=== PATIENT | male | born 1950 | race Caucasian/White ===

== ENCOUNTER 2017-11-12 00:11 | Observation (INO) | payer OTHER, MEDICARE ==
[2017-11-12] VITALS (9 sets, daily range): BP systolic 100–126; BP diastolic 58–67; PULSE 66–92; RESP 15–16; TEMP 97.6–99; O2SAT 95–97
[~2017-11-12 00:11] MED LIST: ARIP5S PO; ASPI81 PO; FOLI1TAB PO; MIRA33502 PO; PREV30CA36 PO; QUET1TAB65 PO; SENN1TAB11 PO; TAMS0.4C67 PO; VENL25TA14 PO
--- NOTE | 2017-11-12 00:27 | PD ---
HPI Chief Complaint: Chest Pain Time Seen by Provider: 00:19 Travel History International Travel<30 days: No Contact w/Intl Traveler<30days: No Traveled to known affect area: No History of Present Illness HPI The patient is a 67 year old male who presents to the [facility] emergency department with a history of right-sided chest pain and upper back pain that he reports began 2 hours prior to arrival. The patient reports that the pain was initially an 8 out of 10 in severity and now is a 6 out of 10 in severity after taking 2 adult dose aspirin and 3 sublingual nitroglycerin. The patient reports that he has had the pain in the past been diagnosed with angina. He reports that he is followed by the [place] for his primary care. His last stress test was years ago. He cannot recall ever having a cardiac catheterization. He denies any prior history of myocardial infarction, DVT, or PE. He denies having any worsening reflux symptoms. He reports that the pain is an aching sensation. He reports that the pain is been constant since onset. He reports having associated shortness of breath, however no diaphoresis, nausea, or vomiting. He denies having any recent fevers, cough or congestion. On review of systems otherwise, he denies having any abdominal pain, diarrhea, urinary symptoms, or neurologic symptoms. FORMERLY [facility] Past Medical History Narrative Medical The patient's past medical history is significant for posttraumatic stress disorder, depression, chronic back pain, reported history of being diagnosed with angina by the [facility], history of acid reflux. Bipolar Disorder: Yes Cardiovascular Problems: Yes High Cholesterol: Yes (PT DENIES) Chest Pain: Yes Psychiatric: Yes (PTSD, SUICIDE ATTEMPTS VIA OVERDOSE IN PAST) Past Surgical History Narrative Surgical The patient's past surgical history is significant for back surgery Other Surgery: No Social History Alcohol Use: No Tobacco Use: No Substance Use: No Allergies-Medications (Allergen,Severity, Reaction): Coded Allergies: No Known Allergies (Verified Allergy, Unknown, 11/12/17) Reported Meds & Prescriptions Reported Meds & Active Scripts Active Reported Folic Acid 1 Mg Tablet Miralax Powder (Polyethylene Glycol 3350 Powder) 17 Gm Powd 17 Gm PO DAILY Mix and dissolve one measuring cap-ful (17 grams) in water or juice. Remeron (Mirtazapine) 15 Mg Tab 7.5 Mg PO HS Abilify (Aripiprazole) 2 Mg Tab 2 Mg PO DAILY Aspirin Low Dose (Aspirin) 81 Mg Chew 81 Mg CHEW DAILY Lansoprazole 30 Mg Capdr 30 Mg PO DAILY Tamsulosin (Tamsulosin HCl) 0.4 Mg Cap 0.4 Mg HS Seroquel (Quetiapine Fumarate) 200 Mg Tab 200 Mg PO HS Effexor (Venlafaxine HCl) 25 Mg Tab 25 Mg PO Q12H Review of Systems Except as stated in HPI: all other systems reviewed are Neg General / Constitutional: No: Fever Eyes: No: Visual changes HENT: No: Headaches Cardiovascular: Positive: Chest Pain or Discomfort, Dyspnea on exertion Respiratory: Positive: Shortness of Breath Gastrointestinal: No: Abdominal Pain Genitourinary: No: Dysuria Musculoskeletal: No: Pain Skin: No Rash Neurologic: No: Weakness, Focal Abnormalities, Change in Mentation, Slurred Speech, Sensory Disturbance Psychiatric: No: Depression Endocrine: No: Polydipsia Hematologic/Lymphatic: No: Easy Bruising Physical Exam Narrative General: The patient is a well-developed well-nourished male in no acute distress. Head and Neck exam: Head is normocephalic atraumatic. Eyes: EOMI, pupils are equal round and reactive to light. Nose: Midline septum with pink mucous membranes Mouth: Dentition unremarkable. Moist mucus membranes. Posterior oropharynx is not erythematous. No tonsillar hypertrophy. Uvula midline. Airway patent. Neck: No palpable lymphadenopathy. No nuchal rigidity. No thyromegaly. Cardiovascular: Regular rate and rhythm without murmurs, gallops, or rubs. No pulse deficit to the extremities on simultaneous auscultation and palpation of his radial artery. Lungs: Clear to auscultation bilaterally. No wheezes, rhonchi, or rales. Abdomen: Soft, without tenderness to palpation in all 4 quadrants of the abdomen. No guarding, rebound, or rigidity. Normal bowel sounds are audible. No tenderness on palpation of McBurney's point. Negative Roman sign. Extremities: No clubbing, cyanosis, or edema. 2+ pulses in all 4 extremities. No calf tenderness on palpation. Back: No spinous process tenderness to palpation. No costovertebral angle tenderness to palpation. Neurologic Exam: Grossly nonfocal. Skin Exam: No rash noted. Intact skin that is warm and dry. Data Data Last Documented VS Vital Signs Date Time Temp Pulse Resp B/P (MAP) Pulse Ox O2 Delivery O2 Flow Rate FiO2 11/12/17 00:47 92 16 112/67 (82) 96 Room Air 11/12/17 00:13 99.0 Orders Orders Electrocardiogram (11/12/17:21) Complete Blood Count With Diff (11/12/17:21) Comprehensive Metabolic Panel (11/12/17:21) Creatine Kinase (Cpk) (11/12/17:21) Ckmb (Isoenzyme) Profile (11/12/17:21) Troponin I (11/12/17:) B-Type Natriuretic Peptide (11/12/17:21) Prothrombin Time / Inr (Pt) (11/12/17:) Act Partial Throm Time (Ptt) (11/12/17:) Lipase (11/12/17:21) Magnesium (Mg) (11/12/17:21) Chest, Single Ap (11/12/17:21) Iv Access Insert/Monitor (11/12/17:21) Ecg Monitoring (11/12/17 00:21) Oximetry (11/12/17:21) Bilateral Bp Monitoring (11/12/17 00:39) Morphine Inj (Morphine Inj) (11/12/17 00:45) Nitroglycerin 2% Oint (Nitroglycerin 2% (11/12/17 00:45) Sodium Chlorid 0.9% 500 Ml Inj (Ns 500 M (11/12/17 00:45) Ondansetron Inj (Zofran Inj) (11/12/17 00:45) CKMB (11/12/17 00:45) CKMB% (11/12/17 00:45) Admit Order (Ed Use Only) (11/12/17 01:33) Labs Laboratory Tests Test 11/12/17 00:45 White Blood Count 10.4 TH/MM3 Red Blood Count 4.27 MIL/MM3 Hemoglobin 13.5 GM/DL Hematocrit 38.9 % Mean Corpuscular Volume 91.2 FL Mean Corpuscular Hemoglobin 31.6 PG Mean Corpuscular Hemoglobin Concent 34.6 % Red Cell Distribution Width 13.2 % Platelet Count 217 TH/MM3 Mean Platelet Volume 7.5 FL Neutrophils (%) (Auto) 86.2 % Lymphocytes (%) (Auto) 5.5 % Monocytes (%) (Auto) 7.6 % Eosinophils (%) (Auto) 0.4 % Basophils (%) (Auto) 0.3 % Neutrophils # (Auto) 9.0 TH/MM3 Lymphocytes # (Auto) 0.6 TH/MM3 Monocytes # (Auto) 0.8 TH/MM3 Eosinophils # (Auto) 0.0 TH/MM3 Basophils # (Auto) 0.0 TH/MM3 CBC Comment DIFF FINAL Differential Comment Prothrombin Time 9.9 SEC Prothromb Time International Ratio 1.0 RATIO Activated Partial Thromboplast Time 24.7 SEC Blood Urea Nitrogen 16 MG/DL Creatinine 1.50 MG/DL Random Glucose 85 MG/DL Total Protein 6.9 GM/DL Albumin 3.7 GM/DL Calcium Level 8.4 MG/DL Magnesium Level 2.2 MG/DL Alkaline Phosphatase 81 U/L Aspartate Amino Transf (AST/SGOT) 20 U/L Alanine Aminotransferase (ALT/SGPT) 28 U/L Total Bilirubin 0.2 MG/DL Sodium Level 144 MEQ/L Potassium Level 4.1 MEQ/L Chloride Level 109 MEQ/L Carbon Dioxide Level 28.9 MEQ/L Anion Gap 6 MEQ/L Estimat Glomerular Filtration Rate 46 ML/MIN Total Creatine Kinase 143 U/L Creatine Kinase MB 0.9 NG/ML Troponin I LESS THAN 0.02 NG/ML B-Type Natriuretic Peptide 9 PG/ML Lipase 101 U/L MDM Medical Decision Making Medical Screen Exam Complete: Yes Emergency Medical Condition: Yes Medical Record Reviewed: Yes Interpretation(s) Last Impressions Chest X-Ray 11/12/17 0021 Signed Impressions: Service Date/Time: Sunday, November 12, 2017 00:47 - CONCLUSION: No acute disease. Bob Escobar MD Myocardial Perfusion Scan Nuc Med 11/12/17 0000 Signed Impressions: Service Date/Time: Sunday, November 12, 2017 08:30 - CONCLUSION: No reversible perfusion defects focal wall motion abnormalities. RISK CATEGORY: 1-Low Risk. Barney Mathews MD Differential Diagnosis Acute coronary syndrome, versus aortic dissection, versus pneumonia, versus pneumothorax, versus pulmonary embolism Narrative Course During the course of the patient's emergency department visit, the patient's history, examination, and differential diagnosis were reviewed with the patient. The patient was placed on a media monitor with oximetry and frequent blood pressure monitoring. The patient had IV access obtained and blood work sent for analysis. The patient had an EKG done on arrival. The patient's EKG shows a sinus rhythm heart rate of 70, QRS duration is 78 ms, QTC 393 ms. The patient has no acute ST segment elevation noted. The patient has T waves inverted in V1, V2, aVL. Regarding the patient's differential diagnosis, pneumonia seems less likely as the patient denies having any cough, congestion, fever, or chills. The patient' s pulmonary embolism Wells score is 0, therefore low probability for pulmonary embolism. Regarding the diagnosis of aortic dissection, chest x-ray will be done to evaluate for any widening of the mediastinum or evidence of pneumothorax. Blood pressures on bilateral upper extremities have been ordered. The patient was initially provided nitroglycerin 1 inch to the chest wall, morphine 2 mg IV, Zofran 4 mg IV, normal saline 500 mL bolus 1. The patient's studies were reviewed and remarkable for A white count of 10.4, hemoglobin 13.5, platelets 217 with 86.2 neutrophils, lymphocytes 5.5. CMP is remarkable for chloride of 109, creatinine 1.50, GFR 46, calcium 8.4, lipase within normal limits, initial set of cardiac enzymes within normal limits, BNP is 9 ruling out congestive heart failure. PT PTT within normal limits. A chest x-ray shows no acute cardiopulmonary disease. The patient's results were discussed with the patient, including the plan of care. I explained that further testing and/ or monitoring is indicated based on the patient's history, examination, and/ or laboratory findings. Therefore, I recommended admission for additional evaluation. The patient expressed understanding and was agreeable with this plan. The patient was admitted to the hospital in stable condition and sent to a bed under the care of the chest pain center. Diagnosis Primary Impression: Chest pain, rule out acute myocardial infarction Admitting Information Admitting Physician Requests: Yoli Finn MD Nov 12, 2017 00:27
[2017-11-12] MEDS ORDERED: VENL25TA PO (00:35)
[2017-11-12] MEDS ORDERED: SERO200T PO (00:40)
[2017-11-12] MEDS ORDERED: ARIP2 PO (00:40)
[2017-11-12] MEDS ORDERED: FOLI1TAB6 (00:40)
[2017-11-12] MEDS ORDERED: TAMS0.4C4 (00:40)
[2017-11-12] MEDS ORDERED: MIRA3350 PO (00:40)
[2017-11-12] MEDS ORDERED: ASPI81CH6 CHEW (00:40)
[2017-11-12] MEDS ORDERED: LANS30CA PO (00:40)
[2017-11-12] MEDS ORDERED: REME15TA PO (00:40)
[2017-11-12] MEDS ORDERED: ONDANSETRON HCL 4 MG/2 ML VIAL IV ONE (00:45)
[2017-11-12] MEDS ORDERED: NITROGLYCERIN 2% OINT 1 GM PACKET TOP ONE (00:45)
[2017-11-12] MEDS ORDERED: MORPHINE SULFATE 4 MG/ML INJ IV PUSH ONE (00:45)
[2017-11-12] MEDS ORDERED: SODIUM CHLORID 0.9% 500 ML INJ 500 ML IV ONE (00:45)
[2017-11-12 01:00] LABS: BASOPHIL % 0.3 % (0.0-2.0); EOSINOPHIL % 0.4 % (0.0-4.0); HEMATOCRIT 38.9 % (39.0-51.0); HEMOGLOBIN 13.5 GM/DL (13.0-17.0); LYMPH % 5.5 % (9.0-44.0); LYMPHOCYTE # 0.6 TH/MM3 (1.0-4.8); MEAN CELL VOLUME 91.2 FL (80.0-100.0); MEAN CORPUSCULAR HEMOGLOBIN 31.6 PG (27.0-34.0); MEAN CORPUSCULAR HGB CONC 34.6 % (32.0-36.0); MEAN PLATELET VOLUME 7.5 FL (7.0-11.0); MONO % 7.6 % (0.0-8.0); MONOCYTE # 0.8 TH/MM3 (0-0.9); NEUT % 86.2 % (16.0-70.0); PLATELET COUNT 217 TH/MM3 (150-450); RED BLOOD COUNT 4.27 MIL/MM3 (4.50-5.90); RED CELL DISTRIBUTION WIDTH 13.2 % (11.6-17.2); WHITE BLOOD COUNT 10.4 TH/MM3 (4.0-11.0)
--- NOTE | 2017-11-12 01:03 | RADRPT ---
EXAM DATE/TIME: 11/12/2017 00:47 [facility] COMPARISON: No previous studies available for comparison. INDICATIONS : Chest pain. MEDICAL HISTORY : None. SURGICAL HISTORY : None. ENCOUNTER: Initial ACUITY: 1 day PAIN SCORE: 8/10 LOCATION: Right chest FINDINGS: A single view of the chest demonstrates the lungs to be symmetrically aerated without evidence of mas s, infiltrate or effusion. The cardiomediastinal contours are unremarkable. Osseous structures are intact. CONCLUSION: No acute disease. Bob Escobar MD on November 12, 2017 at 1:01 Board Certified Radiologist. This report was verified electronically.
[2017-11-12 01:13] LABS: ALBUMIN 3.7 GM/DL (3.4-5.0); ALT (GPT) 28 U/L (12-78); AST (GOT) 20 U/L (15-37); BICARBONATE 28.9 MEQ/L (21.0-32.0); BLOOD UREA NITROGEN 16 MG/DL (7-18); CALCIUM 8.4 MG/DL (8.5-10.1); CHLORIDE 109 MEQ/L (98-107); GLOMERULAR FILTRATION RATE 46 ML/MIN (>89); GLUCOSE,RANDOM 85 MG/DL (74-106); MAGNESIUM 2.2 MG/DL (1.5-2.5); SODIUM (NA) 144 MEQ/L (136-145)
[2017-11-12 01:17] LABS: ALKALINE PHOSPHATASE 81 U/L (45-117); TOTAL BILIRUBIN ADULT 0.2 MG/DL (0.2-1.0); TOTAL PROTEIN 6.9 GM/DL (6.4-8.2); TROPONIN I LESS THAN 0.02 NG/ML (0.02-0.05)
[2017-11-12 01:33] LABS: PROTHROMBIN TIME - PATIENT 9.9 SEC (9.8-11.6)
[2017-11-12] MEDS ORDERED: SODIUM CHLORIDE 0.9% FLUSH 10 ML FLUSH IV FLUSH PRN (02:45)
[2017-11-12] MEDS ORDERED: ACETAMINOPHEN 500 MG CPLT PO PRN (02:45)
[2017-11-12 04:17] LABS: TROPONIN I LESS THAN 0.02 NG/ML (0.02-0.05)
--- NOTE | 2017-11-12 05:21 | EKG ---
Date Performed: 11/12/2017 Time Performed: 03:53:10 PTAGE: 67 years EKG: Sinus rhythm NONSPECIFIC T-WAVE ABNORMALITY BORDERLINE ECG PREVIOUS TRACING : 11/12/2017 00.28 No significant change from previous tracing noted. DOCTOR: Db Alba Interpretating Date/Time 11/12/2017 05:19:17
[2017-11-12 07:14] LABS: TROPONIN I LESS THAN 0.02 NG/ML (0.02-0.05)
--- NOTE | 2017-11-12 07:47 | HHI.HP ---
HPI Primary Care Physician [facility] Chief Complaint Chest pain History of Present Illness This is a 67-year-old male that presents to ED via private vehicle with a complaint of a right-sided chest discomfort that began around 1130 last evening while he was watching television. Worse level is an 8 out of 10. Lasted 4-5 hours. He tried sublingual nitroglycerin at home without relief. Found nothing to worsen or improve the symptoms. He was mildly short of breath. No nausea or diaphoresis. He has had similar discomforts in the past but really does not recall the results of the studies. He states he has had a chemical stress test about 3 years ago at the [place] and he believes that was okay. States never had a cardiac catheterization. He also had a stress test at this facility in 2007 was nonischemic. Currently denies chest discomfort. Denies recent illness. Denies fevers or chills. Review of Systems General: Patient denies fevers, chills, and recent travel. HEENT: Patient denies headache, sore throat, difficulty swallowing. Cardiovascular: Has the chest discomfort as mentioned above. Denies sensation of heart beating rapidly or irregularly. No syncope. Denies diaphoresis. Respiratory: Mild shortness of breath. Denies inspirational chest discomfort. Denies coughing wheezing or hemoptysis. GI: Patient denies nausea, vomiting, diarrhea, abdominal pain, bloody stools. Musculoskeletal: Chronic low back pain. Patient denies joint pain or edema. Denies calf pain or edema. Neurovascular: Patient denies numbness, tingling, weakness in extremities. Denies headache. Endocrine: Denies polyuria and polydipsia. Hematologic: Denies easy bruising. Skin: Denies rash or itching. Past Family Social History Allergies: Coded Allergies: No Known Allergies (Verified Allergy, Unknown, 11/12/17) Past Medical History Chronic low back pain. PTSD, bipolar disorder, GERD. Denies hypertension, hyperlipidemia, diabetes, and known CAD. Past Surgical History Back surgery. Reported Medications Reported Meds & Active Scripts Active Reported Folic Acid 1 Mg Tablet Miralax Powder (Polyethylene Glycol 3350 Powder) 17 Gm Powd 17 Gm PO DAILY Mix and dissolve one measuring cap-ful (17 grams) in water or juice. Remeron (Mirtazapine) 15 Mg Tab 7.5 Mg PO HS Abilify (Aripiprazole) 2 Mg Tab 2 Mg PO DAILY Aspirin Low Dose (Aspirin) 81 Mg Chew 81 Mg CHEW DAILY Lansoprazole 30 Mg Capdr 30 Mg PO DAILY Tamsulosin (Tamsulosin HCl) 0.4 Mg Cap 0.4 Mg HS Seroquel (Quetiapine Fumarate) 200 Mg Tab 200 Mg PO HS Effexor (Venlafaxine HCl) 25 Mg Tab 25 Mg PO Q12H Active Ordered Medications Current Medications Medications (Trade) Dose Ordered Sig/Oma Route Start Time Stop Time Status Last Admin (NS Flush) 2 ml UNSCH PRN IV FLUSH 11/12/17 02:45 (NS Flush) 2 ml BID IV FLUSH 11/12/17 09:00 (Tylenol) 500 mg Q4H PRN PO 11/12/17 02:45 (Abilify) 2 mg DAILY PO 11/12/17 09:00 (Remeron) 7.5 mg HS PO 11/12/17 21:00 (SEROquel) 200 mg HS PO 11/12/17 21:00 (Flomax) 0.4 mg HS PO 11/12/17 21:00 (Effexor) 25 mg Q12H PO 11/12/17 08:00 Non-Formulary Medication 30 mg DAILY PO 11/12/17 09:00 UNV (Aspirin) 325 mg DAILY PO 11/12/17 09:00 Family History Denies family history of CAD. Social History Lifetime non-smoker. Has an occasional beer. Denies illicit drugs. He is . 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 Physical Exam Vital Signs Vital Signs Date Time Temp Pulse Resp B/P (MAP) Pulse Ox O2 Delivery O2 Flow Rate FiO2 11/12/17 04:32 70 11/12/17 03:53 98.4 75 16 100/63 (75) 97 11/12/17 02:47 96 21 11/12/17 00:47 92 16 112/67 (82) 96 Room Air 11/12/17 00:46 77 16 113/62 (79) 97 Room Air 11/12/17 00:41 66 16 126/66 (86) 97 Room Air 11/12/17 00:28 72 16 122/66 (84) 96 Room Air 11/12/17 00:25 98 11/12/17 00:13 99.0 78 15 119/59 (79) 97 Physical Exam GENERAL: This is a well-nourished, well-developed patient, in no apparent distress. Patient speaks in clear complete sentences. Patient is pleasant. HEENT: Head is atraumatic and normocephalic. Neck is supple without lymphadenopathy and trachea is midline. No JVD or carotid bruits. CARDIOVASCULAR: Grade 2 systolic murmur right sternal border. Regular rate and rhythm without gallops, or rubs. RESPIRATORY: Clear to auscultation. Breath sounds equal bilaterally. No wheezes , rales, or rhonchi. Chest wall is nontender. No use of accessory muscles. GASTROINTESTINAL: Abdomen is nontender, nondistended. Abdomen soft. No obvious pulsatile mass or bruit. No CVA tenderness. Strong femoral pulses bilaterally. Normal bowel sounds in all quadrants. MUSCULOSKELETAL: Patient is moving upper and lower extremities freely. No calf tenderness or edema, no Homans sign. Strong pulses in upper and lower extremities. NEUROLOGICAL: Patient is alert and oriented. Cranial nerves 2-12 are grossly intact. No focal deficits and speech is clear. SKIN: No rash and turgor is normal. Laboratory Laboratory Tests Test 11/12/17 00:45 11/12/17 03:45 11/12/17 06:40 White Blood Count 10.4 Red Blood Count 4.27 Hemoglobin 13.5 Hematocrit 38.9 Mean Corpuscular Volume 91.2 Mean Corpuscular Hemoglobin 31.6 Mean Corpuscular Hemoglobin Concent 34.6 Red Cell Distribution Width 13.2 Platelet Count 217 Mean Platelet Volume 7.5 Neutrophils (%) (Auto) 86.2 Lymphocytes (%) (Auto) 5.5 Monocytes (%) (Auto) 7.6 Eosinophils (%) (Auto) 0.4 Basophils (%) (Auto) 0.3 Neutrophils # (Auto) 9.0 Lymphocytes # (Auto) 0.6 Monocytes # (Auto) 0.8 Eosinophils # (Auto) 0.0 Basophils # (Auto) 0.0 CBC Comment DIFF FINAL Differential Comment Prothrombin Time 9.9 Prothromb Time International Ratio 1.0 Activated Partial Thromboplast Time 24.7 Blood Urea Nitrogen 16 Creatinine 1.50 Random Glucose 85 Total Protein 6.9 Albumin 3.7 Calcium Level 8.4 Magnesium Level 2.2 Alkaline Phosphatase 81 Aspartate Amino Transf (AST/SGOT) 20 Alanine Aminotransferase (ALT/SGPT) 28 Total Bilirubin 0.2 Sodium Level 144 Potassium Level 4.1 Chloride Level 109 Carbon Dioxide Level 28.9 Anion Gap 6 Estimat Glomerular Filtration Rate 46 Total Creatine Kinase 143 116 112 Creatine Kinase MB 0.9 0.7 LESS THAN 0.5 Troponin I LESS THAN 0.02 LESS THAN 0.02 LESS THAN 0.02 B-Type Natriuretic Peptide 9 Lipase 101 Result Diagram: 11/12/175 11/12/1744 Imaging Last 48 hours Impressions Chest X-Ray 11/12/17 0021 Signed Impressions: Service Date/Time: Sunday, November 12, 2017 00:47 - CONCLUSION: No acute disease. Bob Escobar MD Course EKGs are sinus rhythm with inverted T waves in V1 and V2. Significant ST segment depressions or elevations. Caprini VTE Risk Assessment Caprini VTE Risk Assessment: Mod/High Risk (score >= 2) Caprini Risk Assessment Model Point Value = 1 Point Value = 2 Point Value = 3 Point Value = 5 Age 41-60 Minor surgery BMI > 25 kg/m2 Swollen legs Varicose veins or History of unexplained or recurrent spontaneous Oral contraceptives or hormone replacement Sepsis (< 1 month) Serious lung disease, including pneumonia (< 1 month) Abnormal pulmonary function Acute myocardial infarction Congestive heart failure (< 1 month) History of inflammatory bowel disease Medical patient at bed rest Age 61-74 Arthroscopic surgery Major open surgery (> 45 min) Laparoscopic surgery (> 45 min) Malignancy Confined to bed (> 72 hours) Immobilizing plaster cast Central venous access Age >= 75 History of VTE Family history of VTE Factor V Leiden Prothrombin [id number] Lupus anticoagulant Anticardiolipin antibodies Elevated serum homocysteine Heparin-induced thrombocytopenia Other congenital or acquired thrombophilia Stroke (< 1 month) Elective arthroplasty Hip, pelvis, or leg fracture Acute spinal cord injury (< 1 month) Prophylaxis Regimen Total Risk Factor Score Risk Level Prophylaxis Regimen 0-1 Low Early ambulation 2 Moderate Order ONE of the following: *Sequential Compression Device (SCD) *Heparin 5000 units SQ BID 3-4 Higher Order ONE of the following medications: *Heparin 5000 units SQ TID *Enoxaparin/Lovenox 40 mg SQ daily (WT < 150 kg, CrCl > 30 mL/min) *Enoxaparin/Lovenox 30 mg SQ daily (WT < 150 kg, CrCl > 10-29 mL/min) *Enoxaparin/Lovenox 30 mg SQ BID (WT < 150 kg, CrCl > 30 mL/min) AND/OR *Sequential Compression Device (SCD) 5 or more Highest Order ONE of the following medications: *Heparin 5000 units SQ TID (Preferred with Epidurals) *Enoxaparin/Lovenox 40 mg SQ daily (WT < 150 kg, CrCl > 30 mL/min) *Enoxaparin/Lovenox 30 mg SQ daily (WT < 150 kg, CrCl > 10-29 mL/min) *Enoxaparin/Lovenox 30 mg SQ BID (WT < 150 kg, CrCl > 30 mL/min) AND *Sequential Compression Device (SCD) Assessment and Plan Assessment and Plan * Chest pain: Patient has had serial cardiac enzymes and EKGs for ruling out purposes. He will be seen by Dr. Vasquez of cardiology in the chest pain center and will undergo a Lexiscan myocardial perfusion stress test. Patient will be discharged home with a stress test is nonischemic with instructions to [facility] Return to ED for interval issues. Patient is stable at this time. He is agreeable to this plan. Prince Harmon Nov 12, 2017 07:47
[2017-11-12] MEDS ORDERED: VENLAFAXINE HCL 25 MG TAB PO SCH (08:00)
[2017-11-12] MEDS ORDERED: REGADENOSON INJ 0.4 MG/5 ML SYR ONE (08:45)
[2017-11-12] MEDS ORDERED: SODIUM CHLORIDE 0.9% FLUSH 10 ML FLUSH IV FLUSH SCH (09:00)
[2017-11-12] MEDS ORDERED: ARIPiprazole 2 MG TAB PO SCH (09:00)
[2017-11-12] MEDS ORDERED: ASPIRIN 325 MG TAB PO SCH (09:00)
[2017-11-12] MEDS ORDERED: PANTOPRAZOLE SOD 40 MG DELAYED RELEASE TAB PO SCH (09:00)
--- NOTE | 2017-11-12 10:17 | RADRPT ---
EXAM DATE/TIME: 11/12/2017 08:30 [facility] COMPARISON: No previous studies available for comparison. INDICATIONS : Right sided chest pain with dyspnea. Angina. DOSE: 35 mCi Tc99m Myoview at stress. 11 mCi Tc99m Myoview at rest. 0.4 mg Lexiscan STRESS SYMPTOMS: Asymptomatic. EJECTION FRACTION: 63% MEDICAL HISTORY : None SURGICAL HISTORY : Back surgery. ENCOUNTER: Initial ACUITY: 2 days PAIN SCALE: 5/10 LOCATION: Right chest TECHNIQUE: The patient underwent pharmacologic stress with infusion of prescribed dose. Continuous ECG tracing was monitored during stress. Gated SPECT imaging was performed after stress and conventional SPECT i maging was performed at rest. The examination was performed on a SPECT/CT scanner, both attenuation and non-corrected datasets were reviewed. FINDINGS: DISTRIBUTION: The maximum perfused segment at stress is in the septal wall. PERFUSION STUDY: The pattern of perfusion at stress is within normal limits. GATED STUDY: There is intact wall motion and thickening without hypokinetic or dyskinetic segments. CONCLUSION: No reversible perfusion defects focal wall motion abnormalities. RISK CATEGORY: 1-Low Risk. Barney Mathews MD on November 12, 2017 at 10:12 Board Certified Radiologist. This report was verified electronically.
--- NOTE | 2017-11-12 10:35 | HHI.DCPOC ---
Discharge Care Plan Diagnosis: (1) Chest pain Goals to Promote Your Health * To prevent worsening of your condition and complications * To maintain your health at the optimal level Directions to Meet Your Goals Take your medications as prescribed Follow your dietary instruction Follow activity as directed Keep your appointments as scheduled Take your immunizations and boosters as scheduled If your symptoms worsen call your PCP, if no PCP go to Urgent Care Center or Emergency Room Smoking is Dangerous to Your Health. Avoid second hand smoke Call the 24-hour hour crisis hotline for domestic abuse at [place] Harmon Nov 12, 2017 10:35
--- NOTE | 2017-11-12 18:44 | EKG ---
Date Performed: 11/12/2017 Time Performed: 07:32:10 PTAGE: 67 years EKG: Sinus rhythm NONSPECIFIC T-WAVE ABNORMALITY BORDERLINE ECG Since PREVIOUS TRACING , no significant change noted PREVIOUS TRACIN11/12/2017 03.53 DOCTOR: Stacia Vasquez Interpretating Date/Time 11/12/2017 18:44:04
--- NOTE | 2017-11-12 18:45 | TR ---
Date Performed: 11/12/2017 Time Performed: 08:48:30 DOCTOR: Stacia Vasquez DRUG LIST: CLINICAL HISTORY: CHEST PAIN REASON FOR TEST: CHEST PAIN REASON FOR ENDING: OBSERVATION: CONCLUSION: COMMENTS: Lexiscan stress test was performed under standard four minute protocol. Radionuclide was injected one minute prior to ending the test. No electrocardiographic abormalities were present t o suggest ischemia. Nuclear imaging and interpretation are pending.
[2017-11-12] MEDS ORDERED: QUEtiapine FUMARATE 200 MG TAB PO SCH (21:00)
[2017-11-12] MEDS ORDERED: TAMSULOSIN HCL 0.4 MG CAP PO SCH (21:00)
[2017-11-12] MEDS ORDERED: MIRTAZAPINE 15 MG TAB PO SCH (21:00)
== END 2017-11-12 11:42 | disposition home or self-care (01) ==
LOC: NEPE 00:11 → NEDA 01:34 → NEPFCDU 03:23
PROVIDERS: ADMIT Internal Medicine Cardiovascular Disease; ATTEND Internal Medicine Cardiovascular Disease
DX: R07.89 Other chest pain (principal); K21.9 Gastro-esophageal reflux disease without esophagitis; F31.9 Bipolar disorder, unspecified; F43.10 Post-traumatic stress disorder, unspecified; R94.31 Abnormal electrocardiogram [ECG] [EKG]
CPT/HCPCS: 71045; 78452; 80053; 82550; 82552; 83690; 83735; 83880; 84484; 85025; 85610; 85730; 93005; 93017; 96361; 96374; 96375; 99285; A9502; G0378; J2270; J2405; J2785; J7040